=== PATIENT | male | born 1930 | race Caucasian/White ===

== ENCOUNTER → 2016-10-21 | Outpatient (CLI) | payer MEDICARE | LOC: VM.MRI 08:31 | PROVIDERS: ATTEND Otolaryngology | DX: R42 Dizziness and giddiness (principal); R90.82 White matter disease, unspecified; Z99.2 Dependence on renal dialysis | CPT/HCPCS: 70551 ==

== ENCOUNTER 2017-01-01 23:03 | Emergency (ER) | payer MEDICARE ==
[2017-01-01] MEDS ORDERED: Sodium Chloride 0.9% 10 ML Syringe FLUSH PRN (23:40)
[2017-01-02] MEDS ORDERED: Acetaminophen 500 MG Tab PO ONE (00:45)
[2017-01-02 01:07] VITALS: BP 200/80
[2017-01-02] MEDS ORDERED: Sodium Chloride 0.9% 1,000 ML IV ONE (01:21)
--- NOTE | 2017-01-02 02:21 | EDM.PDOC ---
ED HPI SEPSIS - General Chief Complaint: Fever Stated Complaint: Weakness, fever Time Seen by Provider: 01/01/17 23:05 Source of Information: Reports: Patient, Family History Limitations: Reports: No limitations - History of Present Illness INITIAL COMMENTS - FREE TEXT/NARRATIVE: Mr. Choudhary presents emergency room with profound weakness over the past 24 hours. Patient states that he has end-stage renal disease and is currently on hemodialysis 3 times per week. Last hemodialysis run was on Monday. Patient states that he developed chills and weakness worsening throughout the day today. He states that he has been experiencing a mild cough. Denies any hematuria. No history of recent rashes or skin eruptions. He denies any neck pain, sore throat, or headache. Patient states that he's not experiencing any chest pain or palpitations. Symptom Onset Date: 01/01/17 Symptom Onset Time: 08:00 Timing/Duration: Reports: Day(s): (1) Severity: moderate Improves with: Reports: None Worsens with: Reports: None Context: Reports: infection, indwelling cath (Hemodialysis fistula to right forearm) Associated Symptoms: Reports: no other symptoms - Related Data Allergies/ADRs: Allergies Allergy/AdvReac Type Severity Reaction Status Date / Time lisinopril Allergy Hives Verified 01/01/17 23:26 NUTS Allergy Hives Uncoded 01/01/17 23:26 Home Meds: Home Meds Cholecalciferol (Vitamin D3) [Cholecalciferol] 2,000 units PO DAILY 05/15/14 [ History] Doxazosin Mesylate [Doxazosin Mesylate] 4 mg PO ACBED 05/15/14 [History] Furosemide [Furosemide] 20 mg PO DAILY 05/15/14 [History] amLODIPine Besylate [Amlodipine Besylate] 1 tab PO DAILY 05/15/14 [History] Albuterol [Proair HFA] 2 puff INH Q4H PRN 07/08/14 [History] Aspirin [Halfprin] 1 tab PO DAILY 07/08/14 [History] Desoximetasone [Topicort 0.25% Oint] 1 - 2 applic TOP BID 07/08/14 [History] Multivitamin [Multivitamins] 1 tab PO DAILY 07/08/14 [History] Sodium Bicarbonate 1 tab PO TID 07/08/14 [History] Acetaminophen [Tylenol] 650 mg PO Q4H PRN 09/07/15 [History] Calcium Carbonate 1,250 mg PO DAILY 09/07/15 [History] Darbepoetin [place] in [place] [Aranesp] 10 mcg IJ Q14D 09/07/15 [History] Losartan [Cozaar] 25 mg PO DAILY 09/07/15 [History] traMADol HCl [Ultram] 50 mg PO Q6H 01/02/17 [History] Past Medical History Cardiovascular History: Reports: Hypertension Respiratory History: Reports: COPD Genitourinary History: Reports: Acute renal failure Other Genitourinary History: Dialysis Monday, Monday, Monday Musculoskeletal History: Reports: Arthritis Social & Family History - Tobacco Use Smoking Status *Q: Unknown Ever Smoked Years of Tobacco use: 20 Used Tobacco, but Quit: No - Alcohol Use Days Per Week of Alcohol Use: 0 Number of Drinks Per Day: 1 Total Drinks Per Week: 0 - Recreational Drug Use Recreational Drug Use: No ED ROS GENERAL - Review of Systems Review Of Systems: See Below Constitutional: Reports: no symptoms Respiratory: Reports: No Symptoms Endocrine: Reports: no symptoms GI/Abdominal: Reports: No symptoms : Reports: no symptoms Musculoskeletal: Reports: no symptoms Skin: Reports: no symptoms Neurological: Reports: No Symptoms Hematologic/Lymphatic: Reports: no symptoms Immunologic: Reports: no symptoms Free text/narrative/comment: General-Positive for fever and chills HEENT-denies a sore throat rhinorrhea or congestion. Respiratory-no shortness of breath or cough. Cardiac-denies any substernal chest pain. No jaw neck or back pain. GI-no nausea, vomiting, diarrhea, melena, hematochezia, or hematemesis. -denies any dysuria. Musculoskeletal-no myalgias or arthralgias. Neurologic -no fainting blackouts or lightheadedness. ED EXAM, SEPSIS - Physical Exam Exam: See Below Text/Narrative:: General-patient is in no acute distress. HEENT-head is normocephalic atraumatic. Eyes PERRLA. Extraoccular movements are intact. Lungs-mildly diminished in the bases. Heart-regular rate and rhythm. Abdomen-soft and nontender. No hepatosplenomegaly or masses noted. Pelvis-stable. Extremities-2+ peripheral edema. Hemodialysis fistula noted in right forearm. No erythema or edema noted to the area. Neurologic-cranial nerves II through XII are intact. His speech is fluent. Unable to assess gait due to extreme weakness. EKG INTERPRETATION EKG Date: 01/02/17 Time: 02:41 Course - Vital Signs Text/Narrative:: Blood cultures x2 were obtained and were pending. Lactic acid notably within normal limits. IV access had been established by EMS. Patient was started on normal saline at 75 cc an hour. Patient's influenza was negative. His portable chest x-ray did not reveal any evidence of acute infiltrate. His urinalysis was also negative. Patient will require admission for fever of unknown origin. As he did not have dialysis available at this facility, patient was transferred to [facility] in [facility]. Dr. Cai is the accepting physician. Patient will be transferred by [facility] ground ambulance. Last Recorded V/S: Last Vital Signs Temp 39.2 C H 01/02/17 01:00 Pulse 84 01/02/17 00:40 Resp 18 01/02/17 00:40 BP 200/80 H 01/02/17 00:40 Pulse Ox 94 L 01/02/17 00:40 - Orders/Labs/Meds Orders: Active Orders 24 hr Category Date Time Status Oxygen Therapy [RC] PRN Care 01/01/17 23:41 Active Chest 1V Frontal [CR] Stat Exams 01/01/17 23:42 Taken CULTURE BLOOD [BC] Stat Lab 01/01/17 23:57 Received Sodium Chloride 0.9% [Normal Saline] 1,000 ml Med 01/02/17 01:21 Ordered IV .BOLUS Sodium Chloride 0.9% [Saline Flush] Med 01/01/17 23:40 Active 10 ml FLUSH ASDIRECTED PRN Blood Culture x2 Reflex Set [OM.PC] Stat Oth 01/01/17 23:41 Ordered Peripheral IV Insertion Adult [OM.PC] Routine Oth 01/01/17 23:41 Ordered Medication Orders Sodium Chloride (Normal Saline) 1,000 mls @ 75 mls/hr IV .BOLUS ONE Stop: 01/02/17 14:40 Last Admin: 01/02/17 01:26 Dose: 75 mls/hr Sodium Chloride (Saline Flush) 10 ml FLUSH ASDIRECTED PRN PRN Reason: Keep Vein Open Labs: Laboratory Tests 01/01/17 01/01/17 01/01/17 Range/Units 23:50 23:57 23:57 WBC 9.1 (4.0-10.0) x10^3/uL RBC 3.42 L (4.5-6.0) x10^6/uL Hgb 10.0 L (14.0-18.0) g/dL Hct 31.0 L (40.0-52.0) % MCV 90.6 (78.0-93.0) fL MCH 29.2 (26.0-32.0) pg MCHC 32.3 (32.0-36.0) g/dL RDW Coeff of Magda 15.0 (10.0-15.0) % Plt Count 196 (130-400) x10^3/uL Neut % (Auto) 85.9 H (50.0-80.0) % Lymph % (Auto) 5.9 L (25.0-50.0) % [place] % (Auto) 6.5 (2.0-11.0) % Eos % (Auto) 1.4 (0.0-4.0) % Baso % (Auto) 0.3 (0.2-1.2) % PT 10.5 (10.0-12.8) SEC INR 0.9 L (2.0-3.5) Sodium (136-145) mmol/L Potassium (3.5-5.1) mmol/L Chloride (98-107) mmol/L Carbon Dioxide (21-32) mmol/L BUN (7-18) mg/dL Creatinine (0.70-1.30) mg/dL Est Cr Clr Drug Dosing mL/min Estimated GFR (MDRD) Glucose (74-106) mg/dL Lactic Acid (0.4-2.0) mmol/L Calcium (8.5-10.1) mg/dL Corrected Calcium (8.5-10.1) mg/dL Total Bilirubin (0.2-1.0) mg/dL AST (15-37) U/L ALT (16-63) U/L Alkaline Phosphatase (46-116) U/L Troponin I (<=0.056) ng/mL C-Reactive Protein (<=0.9) mg/dL B-Natriuretic Peptide (<=450) pg/mL Total Protein (6.4-8.2) g/dL Albumin (3.4-5.0) g/dL Globulin Albumin/Globulin Ratio Urine Color Dark yellow H (YELLOW) Urine Appearance Clear (CLEAR) Urine pH 8.5 H (5.0-8.0) Ur Specific [place] 1.020 Urine Protein >=300 H (NEGATIVE) mg/dL Urine Glucose (UA) Negative (NEGATIVE) mg/dL Urine Ketones Negative (NEGATIVE) mg/dL Urine Occult Blood Small H (NEGATIVE) Urine Nitrite Negative (NEGATIVE) Urine Bilirubin Negative (NEGATIVE) Urine Urobilinogen 0.2 (0.2) EU/dL Ur Leukocyte Esterase Negative (NEGATIVE) Urine RBC 5-10 H (NOT SEEN) /HPF Urine WBC 0-5 (NOT SEEN) /HPF Ur Squamous Epith Cells Not seen (NEGATIVE) /HPF Urine Bacteria Rare (NEGATIVE) /HPF Hyaline Casts Occasional H (NEGATIVE) /HPF Urine Mucus Rare H (NEGATIVE) /LPF 01/01/17 01/01/17 Range/Units 23:57 23:57 WBC (4.0-10.0) x10^3/uL RBC (4.5-6.0) x10^6/uL Hgb (14.0-18.0) g/dL Hct (40.0-52.0) % MCV (78.0-93.0) fL MCH (26.0-32.0) pg MCHC (32.0-36.0) g/dL RDW Coeff of Magda (10.0-15.0) % Plt Count (130-400) x10^3/uL Neut % (Auto) (50.0-80.0) % Lymph % (Auto) (25.0-50.0) % [place] % (Auto) (2.0-11.0) % Eos % (Auto) (0.0-4.0) % Baso % (Auto) (0.2-1.2) % PT (10.0-12.8) SEC INR (2.0-3.5) Sodium 137 (136-145) mmol/L Potassium 4.2 (3.5-5.1) mmol/L Chloride 98 (98-107) mmol/L Carbon Dioxide 31 (21-32) mmol/L BUN 33 H (7-18) mg/dL Creatinine 5.2 H* (0.70-1.30) mg/dL Est Cr Clr Drug Dosing 9.03 mL/min Estimated GFR (MDRD) 11 Glucose 102 (74-106) mg/dL Lactic Acid 0.8 (0.4-2.0) mmol/L Calcium 9.1 (8.5-10.1) mg/dL Corrected Calcium 9.34 (8.5-10.1) mg/dL Total Bilirubin 0.7 (0.2-1.0) mg/dL AST 29 (15-37) U/L ALT 42 (16-63) U/L Alkaline Phosphatase 86 (46-116) U/L Troponin I 0.045 (<=0.056) ng/mL C-Reactive Protein 6.2 H (<=0.9) mg/dL B-Natriuretic Peptide 2621 H (<=450) pg/mL Total Protein 7.5 (6.4-8.2) g/dL Albumin 3.7 (3.4-5.0) g/dL Globulin 3.8 Albumin/Globulin Ratio 0.97 Urine Color (YELLOW) Urine Appearance (CLEAR) Urine pH (5.0-8.0) Ur Specific [place] Urine Protein (NEGATIVE) mg/dL Urine Glucose (UA) (NEGATIVE) mg/dL Urine Ketones (NEGATIVE) mg/dL Urine Occult Blood (NEGATIVE) Urine Nitrite (NEGATIVE) Urine Bilirubin (NEGATIVE) Urine Urobilinogen (0.2) EU/dL Ur Leukocyte Esterase (NEGATIVE) Urine RBC (NOT SEEN) /HPF Urine WBC (NOT SEEN) /HPF Ur Squamous Epith Cells (NEGATIVE) /HPF Urine Bacteria (NEGATIVE) /HPF Hyaline Casts (NEGATIVE) /HPF Urine Mucus (NEGATIVE) /LPF Meds: Medications Generic Name Dose Route Start Last Admin Trade Name Freq PRN Reason Stop Dose Admin Sodium Chloride 1,000 mls @ 75 mls/hr 01/02/17 01:21 01/02/17 01:26 Normal Saline IV 01/02/17 14:40 75 mls/hr .BOLUS ONE Administration Sodium Chloride 10 ml 01/01/17 23:40 Saline Flush FLUSH ASDIRECTED PRN Keep Vein Open Discontinued Medications Generic Name Dose Route Start Last Admin Trade Name Freq PRN Reason Stop Dose Admin Acetaminophen 1,000 mg 01/02/17 00:45 01/02/17 01:00 Tylenol Extra Strength PO 01/02/17 00:46 1,000 mg ONETIME ONE Administration Departure - Departure Time of Disposition: 01:20 Disposition: DC/Tfer to Acute Hospital 02 Condition: fair Clinical Impression: Systemic infection Referrals: PCP,Unknown [Primary Care Provider] - Forms: ED Department Discharge, Interfacility Transfer EMTALA - My Orders Last 24 Hours: My Active Orders 01/01/17 23:40 Sodium Chloride 0.9% [Saline Flush] 10 ml FLUSH ASDIRECTED PRN 01/01/17 23:41 Oxygen Therapy [RC] PRN Blood Culture x2 Reflex Set [OM.PC] Stat Peripheral IV Insertion Adult [OM.PC] Routine 01/01/17 23:42 Chest 1V Frontal [CR] Stat 01/01/17 23:57 CULTURE BLOOD [BC] Stat 01/02/17 01:21 Sodium Chloride 0.9% [Normal Saline] 1,000 ml IV .BOLUS - Assessment/Plan Last 24 Hours: My Active Orders 01/01/17 23:40 Sodium Chloride 0.9% [Saline Flush] 10 ml FLUSH ASDIRECTED PRN 01/01/17 23:41 Oxygen Therapy [RC] PRN Blood Culture x2 Reflex Set [OM.PC] Stat Peripheral IV Insertion Adult [OM.PC] Routine 01/01/17 23:42 Chest 1V Frontal [CR] Stat 01/01/17 23:57 CULTURE BLOOD [BC] Stat 01/02/17 01:21 Sodium Chloride 0.9% [Normal Saline] 1,000 ml IV .BOLUS
== END 2017-01-02 01:44 | disposition short-term general hospital (02) ==
LOC: VM.ED 23:03
DX: A41.9 Sepsis, unspecified organism (principal); B99.9 Unspecified infectious disease; R50.9 Fever, unspecified; I12.0 Hypertensive chronic kidney disease with stage 5 chronic kidney disease or end stage renal disease; N18.6 End stage renal disease; J44.9 Chronic obstructive pulmonary disease, unspecified; Z99.2 Dependence on renal dialysis; Z88.8 Allergy status to other drugs, medicaments and biological substances; Z79.82 Long term (current) use of aspirin; Z79.899 Other long term (current) drug therapy
CPT/HCPCS: 36415; 71010; 80053; 81001; 83605; 83880; 84484; 85025; 85610; 86140; 87040; 87804; 99285; A9270; J7030